=== PATIENT | male | born 1965 | race Caucasian/White ===

== ENCOUNTER 2020-11-02 12:02 | Emergency (ER) | payer OTHER ==
[~2020-11-02] VITALS: Ht 162.6 cm; Wt 63.5 kg
[~2020-11-02 12:02] MED LIST: ALPR.25 PO; ARIP10 PO; CEPH500 PO; Cleocin HCl150 MG PO; DULO60; GABA100; PRAZ1; TRAM50 PO; Vistaril25 MG PO
[2020-11-02] MEDS ORDERED: Robaxin-750750 MG PO (13:31)
[2020-11-02] MEDS ORDERED: Norco 7.5-3251 EACH PO (13:31)
== END 2020-11-02 13:44 | disposition home or self-care (01) ==
LOC: ER 12:02
DX: S42.101A Fracture of unspecified part of scapula, right shoulder, initial encounter for closed fracture (principal); F17.200 Nicotine dependence, unspecified, uncomplicated; Z79.899 Other long term (current) drug therapy; W05.2XXA Fall from non-moving motorized mobility scooter, initial encounter
CPT/HCPCS: 29105; 73010; 73030; 99283-25; A9270

== ENCOUNTER 2023-04-08 10:57 | Inpatient (IN) | payer OTHER ==
[~2023-04-08] VITALS: Ht 165.1 cm; Wt 57.3 kg
[~2023-04-08 10:57] MED LIST changes: +Norco 7.5-3251 EACH PO; +Robaxin-750750 MG PO
[2023-04-08 14:12] LABS: BASOPHILS ABSOLUTE AUTO 0.02 K/mm3 (0.00-0.23); BASOPHILS PERCENT AUTO 0 % (0-2); EOSINOPHILS ABSOLUTE AUTO 0.01 K/mm3 (0.00-0.68); EOSINOPHILS PERCENT AUTO 0 % (0-6); Hematocrit 39.4 % (37.0-53.0); Hemoglobin 13.1 g/dL (13.5-17.5); IMMATURE GRAN ABSOLUTE AUTO 0.08 K/mm3 (0.00-0.10); IMMATURE GRAN PERCENT AUTO 1 % (0-1); LYMPHOCYTES ABSOLUTE AUTO 1.13 K/mm3 (0.84-5.20); LYMPHOCYTES PERCENT AUTO 7 % (21-46); MONOCYTES ABSOLUTE AUTO 1.37 K/mm3 (0.16-1.47); MONOCYTES PERCENT AUTO 8 % (4-13); Mean Corpuscular HGB 30.5 pg (26.0-34.0); Mean Corpuscular HGB Conc 33.2 g/dL (31.5-36.5); Mean Corpuscular Volume 92 fL (80-100); Mean Platelet Volume 9.1 fL (9.1-12.4); NEUTROPHILS ABSOLUTE AUTO 13.61 K/mm3 (1.96-9.15); NEUTROPHILS PERCENT AUTO 84 % (41-73); Platelet Count 364 K/mm3 (150-400); RDW Coefficient Variation 12.6 % (11.7-14.2); RDW Standard Deviation 42.3 fL (35.1-46.3); White Blood Cell Count 16.22 K/mm3 (4.00-11.30)
[2023-04-08 14:35] LABS: Albumin/Globulin Ratio 0.7 (0.8-1.8); Bilirubin, Total 0.3 mg/dL (0.1-1.0); Calcium, Blood 9.1 mg/dL (8.5-10.1); Creatinine, Blood 0.94 mg/dL (0.60-1.20); Globulin, Blood 4.2 g/dL (2.2-4.0); Potassium, Blood 3.9 mmol/L (3.5-5.5); Total Protein, Blood 7.2 g/dL (6.4-8.2)
[2023-04-08 17:53] VITALS: BP 151/105; BP 170/100
[2023-04-08] MEDS ORDERED: CENTRUM SILVER1 EAC2 PO (18:03)
--- NOTE | 2023-04-08 18:58 | NUR ---
pt arrived to the medical floor at 181. Room air. A&o x4, sig other nathanael is at his bedside. pt with wound to his LLE. Redness extends from his ankle to his groin. IV access to right arm, saline locked at this time. Skin is intact, with scattered scabs. Wound to LLE is open to air. Pt is a regular diet, activity order bedrest with 1 person assist to BSC. Instructed in fall prevention methods and to use call light before getting up.
[2023-04-09 02:22] VITALS: BP 168/102
--- NOTE | 2023-04-09 04:55 | NUR ---
SHIFT SUMMARY PT A&OX4, AND COOPERATIVE WITH CARE. NO ACUTE CHANGES, VSS. MANAGING PAIN WITH PERCOCET AND FENTANYL. USING BEDSIDE URINAL OR SBA WITH FWW TO BATHROOM TO VOID. WOUND CONSULT FOR LATER TODAY. ABSORBANT DRESSING APPLIED IN THE INTERIM. CALLS APPROPRIATELY, CALL LIGHT WITHIN REACH.
[2023-04-09 04:57] LABS: BASOPHILS ABSOLUTE AUTO 0.05 K/mm3 (0.00-0.23); BASOPHILS PERCENT AUTO 0 % (0-2); EOSINOPHILS ABSOLUTE AUTO 0.13 K/mm3 (0.00-0.68); EOSINOPHILS PERCENT AUTO 1 % (0-6); Hematocrit 38.7 % (37.0-53.0); Hemoglobin 12.7 g/dL (13.5-17.5); IMMATURE GRAN ABSOLUTE AUTO 0.08 K/mm3 (0.00-0.10); IMMATURE GRAN PERCENT AUTO 1 % (0-1); LYMPHOCYTES PERCENT AUTO 11 % (21-46); MONOCYTES ABSOLUTE AUTO 1.57 K/mm3 (0.16-1.47); MONOCYTES PERCENT AUTO 11 % (4-13); Mean Corpuscular HGB 31.1 pg (26.0-34.0); Mean Corpuscular HGB Conc 32.8 g/dL (31.5-36.5); Mean Corpuscular Volume 95 fL (80-100); Mean Platelet Volume 9.4 fL (9.1-12.4); NEUTROPHILS ABSOLUTE AUTO 10.85 K/mm3 (1.96-9.15); NEUTROPHILS PERCENT AUTO 76 % (41-73); Platelet Count 357 K/mm3 (150-400); RDW Coefficient Variation 12.5 % (11.7-14.2); RDW Standard Deviation 43.5 fL (35.1-46.3); Red Blood Cell Count 4.09 M/mm3 (4.30-5.90); White Blood Cell Count 14.28 K/mm3 (4.00-11.30)
[2023-04-09 05:20] LABS: Albumin, Blood 2.8 g/dL (3.4-5.0); Albumin/Globulin Ratio 0.7 (0.8-1.8); Bilirubin, Total 0.3 mg/dL (0.1-1.0); Creatinine, Blood 0.95 mg/dL (0.60-1.20); Globulin, Blood 3.9 g/dL (2.2-4.0); Potassium, Blood 4.6 mmol/L (3.5-5.5); Total Protein, Blood 6.7 g/dL (6.4-8.2)
[2023-04-09 07:04] VITALS: BP 152/99
[2023-04-09 14:09] VITALS: BP 126/90
--- NOTE | 2023-04-09 15:53 | NUR ---
SHIFT SUMMARY WOUND TO LEFT LOWER EXTREMITY REMAINS PAINFUL TO PATIENT. DRESSING CHANGED X2 TODAY. IV ABX INFUSING PER EMAR. PT ABLE TO AMBULATE TO RESTROOM USING FWW. TOLERATING DIET WELL, NO NAUSEA. PT REPORTS FEELING BETTER THIS AFTERNOON AFTER TAKING AMLODIPINE THIS MORNING. PLAN IS TO CONINTUE IV ABX, AWAITING SENSITIVITIES ON WOUND CULTURES.
[2023-04-10 00:34] VITALS: BP 159/96
[2023-04-10 04:32] VITALS: BP 159/96
[2023-04-10 05:14] LABS: BASOPHILS ABSOLUTE AUTO 0.06 K/mm3 (0.00-0.23); BASOPHILS PERCENT AUTO 1 % (0-2); EOSINOPHILS ABSOLUTE AUTO 0.12 K/mm3 (0.00-0.68); EOSINOPHILS PERCENT AUTO 1 % (0-6); Hematocrit 38.3 % (37.0-53.0); Hemoglobin 12.6 g/dL (13.5-17.5); IMMATURE GRAN ABSOLUTE AUTO 0.05 K/mm3 (0.00-0.10); IMMATURE GRAN PERCENT AUTO 1 % (0-1); LYMPHOCYTES ABSOLUTE AUTO 2.41 K/mm3 (0.84-5.20); LYMPHOCYTES PERCENT AUTO 23 % (21-46); MONOCYTES ABSOLUTE AUTO 1.02 K/mm3 (0.16-1.47); MONOCYTES PERCENT AUTO 10 % (4-13); Mean Corpuscular HGB 30.4 pg (26.0-34.0); Mean Corpuscular HGB Conc 32.9 g/dL (31.5-36.5); Mean Corpuscular Volume 92 fL (80-100); Mean Platelet Volume 9.1 fL (9.1-12.4); NEUTROPHILS ABSOLUTE AUTO 6.93 K/mm3 (1.96-9.15); NEUTROPHILS PERCENT AUTO 65 % (41-73); Platelet Count 380 K/mm3 (150-400); RDW Coefficient Variation 12.1 % (11.7-14.2); RDW Standard Deviation 41.4 fL (35.1-46.3); Red Blood Cell Count 4.15 M/mm3 (4.30-5.90); White Blood Cell Count 10.59 K/mm3 (4.00-11.30)
[2023-04-10 05:48] LABS: Albumin, Blood 2.6 g/dL (3.4-5.0); Albumin/Globulin Ratio 0.6 (0.8-1.8); Bilirubin, Total 0.3 mg/dL (0.1-1.0); Calcium, Blood 8.9 mg/dL (8.5-10.1); Creatinine, Blood 0.93 mg/dL (0.60-1.20); Potassium, Blood 4.7 mmol/L (3.5-5.5); Total Protein, Blood 6.6 g/dL (6.4-8.2)
--- NOTE | 2023-04-10 05:53 | NUR ---
Shift Summary LLE wound painful and sensitive. Changed dressing x1. Pt AOx4, independently uses BR w/ FWW. He c/o sever pain, medicated per emar, controlled to his satisfaction. Pt was hypertensive t/o the night, BP maintaining 159/96. Called hospitalist who ordered PRN Hydralazine, but pt's systolic never exceeded the 160 from the order's paramaters.
[2023-04-10 07:42] VITALS: BP 153/93
[2023-04-10] MEDS ORDERED: ACET325 PO (14:54)
[2023-04-10] MEDS ORDERED: AMLO10 PO (14:54)
[2023-04-10] MEDS ORDERED: Prinivil10 MG PO (14:55)
[2023-04-10] MEDS ORDERED: VISBIOME 112.51 EACH PO (14:57)
[2023-04-10] MEDS ORDERED: Percocet 5-3251 EACH PO (14:57)
[2023-04-10] MEDS ORDERED: CEPH500 PO (14:58)
[2023-04-10] MEDS ORDERED: METF500C PO (14:59)
--- NOTE | 2023-04-10 16:57 | NUR ---
DISCHARGE SUMMARY: Pt's DISCHARGE INSTRUCTIONS AND SUPPLIES TO GO ALONG WITH INSTRUCTIONS FOR WOUND CARE, PRESCRIPTIONS, AND DIABETIC SUPPLIES DISCUSSED WITH PATIENT AND HIS SIGNIFICANT OTHER. INSTRUCTIONS GIVEN WERE UNDERSTOOD BY PATIENT AND SIGNIFICANT OTHER. Pt's IV WAS REMOVED, BELONINGS WERE COLLECTED, AND PATIENT WAS TRANSPORTED VIA WHEELCHAIR AND WAS PICKED UP BY A MEDICAL TRANSPORT SERVICE THAT WAS ARRANGED BY THE NURSE CRIMINAL JUSTICE TEACHER. THE Pt DID NOT EXPERIENCE ANY DISTRESS DURING DISCHARGE OR TRANSFER.
--- NOTE | 2023-04-10 18:51 | NUR ---
PT CALLED STATING THAT RX WAS NOT ABLE TO BE FILLED, THIS RN CALLED SHANTELL ALBRIGHT AND VERIFIED RX
== END 2023-04-10 15:50 | disposition home or self-care (01) | DRG 603 ==
LOC: ER 10:57 → MEDS 10:58 → ENPENDDIS 04-10 15:44 → MEDS 04-10 15:50
PROVIDERS: Student in an Organized Health Care Education/Training Program; ADMIT Internal Medicine
DX: L03.116 Cellulitis of left lower limb (principal); L40.9 Psoriasis, unspecified; F41.9 Anxiety disorder, unspecified; F43.10 Post-traumatic stress disorder, unspecified; A46 Erysipelas; I10 Essential (primary) hypertension; B95.61 Methicillin susceptible Staphylococcus aureus infection as the cause of diseases classified elsewhere; B95.0 Streptococcus, group A, as the cause of diseases classified elsewhere; M51.36 Other intervertebral disc degeneration, lumbar region; F17.210 Nicotine dependence, cigarettes, uncomplicated; F10.90 Alcohol use, unspecified, uncomplicated; F32.A Depression, unspecified; G47.00 Insomnia, unspecified; F12.90 Cannabis use, unspecified, uncomplicated; R73.9 Hyperglycemia, unspecified; Z88.5 Allergy status to narcotic agent; Z87.81 Personal history of (healed) traumatic fracture; Z79.899 Other long term (current) drug therapy
CPT/HCPCS: 36415; 80053; 82947; 83036; 83605; 85025; 87070; 87075; 87077; 87081; 87147; 87186; 87205; 90714; 96365; 96367; 96375; 96376; 99285-25; A9270; G0378; J0690; J0696; J1170; J1885; J2405; J3010; J3370; J7030; J7050